=== PATIENT | male | born 1985 | race Caucasian/White ===

== ENCOUNTER → 2020-11-24 07:01 | Outpatient (CLI) | payer OTHER, SELFPAY ==
--- NOTE | ~2020-11-24 | MR_ITS ---
EXAMINATION: MR knee LT wo con DATE: 11/24/2020 07:40 INDICATION: Left knee pain TECHNIQUE: Magnetic resonance imaging (MRI) of the left knee was performed without intravenous contra st. Sequences included coronal PD-weighted FSE, coronal PD-weighted FS FSE, sagittal T2-weighted FSE , sagittal PD-weighted FS FSE and axial PD weighted fat saturated FSE. COMPARISON: None. FINDINGS: Medial compartment: Longitudinal horizontal tear extending to the inferior articular surface of the posterior body and po sterior horn of the medial meniscus. There is a cluster of small para labral cysts measuring 1.7 x 1. 3 x 0.5 cm along the periphery of the lateral aspect of the posterior horn of the medial meniscus. Pa rtial-thickness cartilage loss with mild underlying subarticular edema along the medial rim of the me dial tibial plateau. Remaining cartilage is relatively preserved. Lateral compartment: Lateral meniscus is normal. Articular cartilage is normal. Patellofemoral compartment: Heterogeneous cartilage signal suggesting mild partial-thickness fissuring at the inferior aspect of the medial trochlea. Remainder of the patellofemoral cartilage is normal. Ligaments and tendons: Anterior and posterior cruciate ligaments are normal. The medial collateral ligament and fibular donald ateral ligament complex are normal. The extensor mechanism is normal. The visualized medial and later al hamstring tendons as well as the iliotibial band are normal. Fluid: Physiologic amount of fluid in the joint space. No loose osteochondral bodies identified. Osseous/other: Ovoid low signal intensity bone island at the lateral femoral condyle. Normal marrow signal aside fro m the previous noted small region of subarticular edema at the medial rim of the medial tibial platea u. No fracture or pathologic marrow replacing process. IMPRESSION: 1. Longitudinal horizontal tear of the posterior horn of the medial meniscus with associated small pa ra meniscal cyst. 2. 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 Reviewed, dictated and finalized at location A. IMPRESSION: 1. Longitudinal horizontal tear of the posterior horn of the medial meniscus wi th associated small para meniscal cyst. 2. Minimal medial and patellofemoral osteoarthritis with small region of chondr omalacia at the medial tibial plateau and medial trochlea as detailed above.
== END ==
PROVIDERS: PCP Internal Medicine; Visit Provider Nurse Practitioner Family
DX: S83.242A Other tear of medial meniscus, current injury, left knee, initial encounter (principal); M17.12 Unilateral primary osteoarthritis, left knee
CPT/HCPCS: 73721

== ENCOUNTER 2024-07-17 00:35 | Day surgery (SDC) | payer OTHER, SELFPAY ==
[2024-07-09 13:24] VITALS: BMI 26.7
--- NOTE | 2024-07-09 13:41 | PC.NURSE ---
Report to the Outpatient Waiting Room, entrance under the green pavilion located off [facility], at time _1130AM on date _07/17/24 . Planned Procedure Time: __1330AM .? Time changes happen often and if your time is changed the preop area will call you the afternoon before. - You and your visitor will be asked to self-screen and do not enter if you have any COVID symptoms. Please call surgeon if you need to reschedule. - A mask is optional within the hospital at this time. Patients may have clear liquids (water, carbonated beverages, clear teas, apple juice) until 3 hours prior to surgery with a maximum of 20 ounces. - No food from midnight until time of surgery and no smoking. This includes no chewing gum, candy or mints. Take only the following medications with a SIP of water on the morning of surgery: __NONE DO NOT STOP ANY OF YOUR OTHER PRESCRIPTION MEDICATIONS PRIOR TO SURGERY EXCEPT THE FOLLOWING Medications to discontinue per physician NONE Date to take last dose____NONE Please no make-up, nail faroese, hairspray, perfume, deodorant, or body powder the day of surgery.? No jewelry (including any body piercings) or valuables the day of surgery, leave them at home.? Please take a shower or bath the night before, or the morning of, surgery with an antibacterial soap.? Wear comfortable, loose fitting clothing.? - Jewelry must be removed prior to entering the operating room.? Rings and piercings that are not removed may be cut off. - The hospital will not accept responsibility for valuables.? - Please leave all valuables, including medications, at home the day of surgery. If you are going home after surgery, a licensed tractor driver must drive you home.? - NO public transportation without another adult if you receive anesthesia. - We recommend that an adult stay with you for 24 hours following discharge. - We also recommend that you do not drive, make important decision, drink alcoholic beverages, or take any drugs that were not prescribed by your health care provider for at least 24 hours after your discharge time. Follow any additional instructions given to you from your surgeon. Telephone instructions given to __GRANT and asked if any additional questions and then verbalized understanding. Patient advised to call surgeon office or pre surgery nurse liaison [phone] if any additional questions.
[2024-07-17] VITALS (8 sets, daily range): BP systolic 105–140; BP diastolic 76–93; PULSE 54–68; RESP 14–19; TEMP 36.1–36.3; O2SAT 94–100
--- NOTE | 2024-07-17 07:22 | WPDHPUPDATE1 ---
History and Physical Update Update Date/Time: 07/17/24 07:22 History and Physical has been reviewed, including an updated exam of the patient. There are NO changes in the patient's condition. Risks, benefits, and alternatives have been discussed and questions answered. Patient agrees to proceed with procedure.
[2024-07-17] MEDS: ACETAMINOPHEN 500 MG TABLET 1000 MG PO (12:15)
[2024-07-17] MEDS: CELECOXIB 200 MG CAPSULE PO (12:15)
--- NOTE | 2024-07-17 14:01 | SUR.PREOP ---
1345 PT AND UPDATED, PT DENIES ANY NEEDS AT THIS TIME.
--- NOTE | 2024-07-17 14:16 | WPDANESEPPF ---
Anes - Initial Pre Proc Eval Procedure: Operation Date: 07/17/24 13:30 Proposed Procedures p Left Knee Arthroscopy - Mario Underwood MD Date/Time: 07/17/24 14:16 Surgeon: Mario Underwood MD Pre Op Diagnosis: Left Knee medial meniscal tear Patient Data Age: 38 Gender: M Height: 1.8 m Weight: 88.3 kg Last Vital Signs Temp 97.4 F L 07/17/24 11:39 Pulse 55 L 07/17/24 11:39 Resp 18 07/17/24 11:39 BP 126/77 07/17/24 11:39 Pulse Ox 98 07/17/24 11:39 O2 Del Method Room Air 07/17/24 11:39 Allergies Allergy/AdvReac Type Severity Reaction Status Date / Time No Known Allergies Allergy Verified 07/17/24 11:48 Home Medications ?Medication ?Instructions ?Recorded ?Confirmed ?Type No Home Medications 07/17/24 07/17/24 History Patient hx anesthesia problems: none Family hx anesthesia problems: none Results Review: All pre-operative results and documents have been reviewed as part of the pre-operative evaluation. [facility] Past Medical History Medical History Left knee pain Medial meniscus tear Social History Social History Smoking status: Never smoker Alcohol intake: current Drinks per week: 2 Substance use: never Substance use type: does not use Gender identity (if verbalized by the patient): Male Anes - Eval Final PreProcedure Day of Procedure 07/17/24 14:16 Patient weight: overweight Heart: regular rate and rhythm Lungs: clear to auscultation Airway: Mallampati scale class II Neurological: alert and oriented Last oral intake: >/= 8 hours ASA classification: II Emergent: no Anesthetic plan: proceed Anesthesia type and monitoring: general LMA and standard monitoring Results Review: All pre-operative results and documents have been reviewed as part of the pre-operative evaluation. Informed Consent: The patient's anesthetic plan and its attendant risks and benefits were discussed with the patient/family/POA. Questions were solicited and answers provided to the satisfaction of the patient/family/POA.
[2024-07-17] MEDS: ceFAZolin 2 GM/D5W 50 ML 2 GM/50 ML BAG IVPB (14:26)
[2024-07-17] MEDS: BUPivacaine HCL 0.5% PF 30 ML VIAL INFILTRATE (14:26)
[2024-07-17] MEDS: LACTATED RINGERS 1,000 ML 30 ML IV CONT ×2 (15:48)
--- NOTE | 2024-07-17 15:55 | W.PM.PROC2 ---
Procedure Note - Detailed Date of Procedure 07/17/24 Pre-op Diagnosis Left Knee medial meniscal tear Post-op Diagnosis Other (LEFT MEDIAL AND LATERAL MENISCUS TEAR) Procedure Performed LEFT KNEE SCOPE Surgeon Mario Underwood MD Anesthesia General Description of Procedure PATIENT WAS TAKEN TO THE OR. THE LEFT LEG WAS PREPPED AND DRAPED STERILE. TROCARS WERE PLACED IN THE USUAL FASHION. CAMERA WAS INTRODUCED. THERE WAS MINIMAL CHONDROMALACIA TO THE PATELLA FEMORAL JOINT. THERE WAS A LOT OF SYNOVITIS IN ALL COMPARTMENTS. THE MEDIAL COMPARTMENT SHOWED MILD CHONDROMALACIA TO THE MEDIAL FEMORAL CONDYLE. A SHAVER WAS USED TO PREFORM A CHONDROPLASTY. THERE WAS A LARGE COMPLEX MEDIAL MENISCUS TEAR. THE TEAR WAS RESECTED WITH A BITER AND A SHAVER DOWN TO A SMOOTH BASE. ABOUT 30% OF THE MENISCUS WAS AFFECTED. THE ACL WAS INTACT. THE LATERAL MENISCUS WAS TORN AT THE MID SECTION AT THE SURFACE AND UNDERSURFACE . THE TEAR WAS RESECTED. THE LATERAL COMPARTMENT HAD MINIMAL CHONDROMALACIA. A SYNOVECTOMY WAS PREFORMED. THE PATELLO FEMORAL JOINT UNDERWENT MINIMAL CHONDROPLASTY. SYNOVECTOMY WAS PREFORMED IN THE SUPERIOR MEDIAL COMPARTMENT. THE WOUNDS WERE APPROXIMATED WITH 4.0 NYLON. STERILE DRESSING WAS APPLIED. PATIENT WAS EXTUBATED. Estimated Blood Loss 5 Complications No immediate complications Condition Stable Disposition PACU
[2024-07-17] MEDS: oxyCODONE HCL (*CRX) 5 MG TAB IR PO (16:40)
== END 2024-07-17 17:25 | disposition home or self-care (01) ==
PROVIDERS: PCP Internal Medicine; Visit Provider Orthopaedic Surgery
PROC: (CPT 29870; principal; 2024-07-17 13:30)
DX: M23.332 Other meniscus derangements, other medial meniscus, left knee (principal); M23.362 Other meniscus derangements, other lateral meniscus, left knee; M94.262 Chondromalacia, left knee; M65.862 Other synovitis and tenosynovitis, left lower leg
CPT/HCPCS: 29880; A9270; J0690; J1100; J2003; J2250; J2405; J2704; J3010; J7120